=== PATIENT | male | born 1960 | race Caucasian/White ===

== ENCOUNTER 2021-01-23 00:07 | Emergency (ER) | payer MEDICARE | END 2021-01-23 06:15 | disposition home or self-care (01) | LOC: FER 00:07 | DX: S00.93XA Contusion of unspecified part of head, initial encounter (principal); M54.2 Cervicalgia; I48.91 Unspecified atrial fibrillation; E11.9 Type 2 diabetes mellitus without complications; I10 Essential (primary) hypertension; J44.9 Chronic obstructive pulmonary disease, unspecified; F17.200 Nicotine dependence, unspecified, uncomplicated; Y04.2XXA Assault by strike against or bumped into by another person, initial encounter; Y92.009 Unspecified place in unspecified non-institutional (private) residence as the place of occurrence of the external cause | CPT/HCPCS: 70450; 72125 ==

== ENCOUNTER 2021-07-03 08:29 | Emergency (ER) | payer MEDICARE ==
[2021-07-03 09:16] LABS: BASOPHIL 0.9 % (0-2); EOSINOPHIL 3.2 % (0-5); HGB 17.9 g/dl (13.2-18.0); LYMPHOCYTE 26.1 % (15-48); MCH 30.7 pg (25.0-31.0); MCHC 33.1 g/dL (32.0-36.0); MCV 92.5 fL (78.0-100.0); MONOCYTE 10.6 % (0-12); MPV 9.1 fL (6.0-9.5); NEUTROPHIL 58.4 % (41-80); NRBC 0; PLT 282 K/uL (150-400); RBC 5.84 M/uL (4.70-6.00); RDW 13.2 % (11.5-14.0); WBC 6.6 K/uL (4.0-10.5)
[2021-07-03 09:20] LABS: PROTHROMBIN TIME 12.6 SECONDS (11.8-13.4)
[2021-07-03 09:21] LABS: PTT 26.5 SECONDS (24.4-34.7)
[2021-07-03 09:22] LABS: D-DIMER < 0.27 ug/mLFEU (0.00-0.41)
[2021-07-03 09:38] LABS: LACTIC ACID 1.4 mmol/L (0.4-1.9)
[2021-07-03 09:42] LABS: PRO-BNP 26 pg/mL (<125)
[2021-07-03 09:43] LABS: BILIRUBIN - TOTAL 0.5 mg/dL (0.2-1.0); BUN/CREAT RATIO (CALC) 15.8 RATIO; CREATININE 1.01 mg/dL (0.67-1.17); GLOBULIN (CALCULATION) 4.7 g/dL; POTASSIUM 4.3 mmol/L (3.5-5.1); TOTAL PROTEIN 8.7 g/dL (6.4-8.2)
[2021-07-03 09:58] LABS: CORONAVIRUS 2019 SARS-COV-2 NEGATIVE (NEGATIVE); INFLUENZA A NAA NEGATIVE (NEGATIVE)
[2021-07-03] MEDS ORDERED: SYMBICORT 80-10.2 GM INH (10:29)
[2021-07-03] MEDS ORDERED: SPIRIVA RESPIMAT4 GM INH (10:29)
[2021-07-03] MEDS ORDERED: VENTOLIN HFA IN18 GM INH (10:29)
== END 2021-07-03 10:58 | disposition home or self-care (01) ==
LOC: FER 08:29
PROVIDERS: Emergency Medicine
DX: J44.9 Chronic obstructive pulmonary disease, unspecified (principal); I10 Essential (primary) hypertension; F17.210 Nicotine dependence, cigarettes, uncomplicated; Z20.822 Contact with and (suspected) exposure to COVID-19
CPT/HCPCS: 36415; 36600; 71045; 80053; 82803; 83605; 83880; 84484; 85025; 85379; 85610; 85730; 87040; 93005; 94640; U0002

== ENCOUNTER 2021-11-20 13:08 | Emergency (ER) | payer MEDICARE ==
[~2021-11-20] VITALS: Ht 182.9 cm; Wt 97.1 kg
[~2021-11-20 13:08] MED LIST: SPIRIVA RESPIMAT4 GM INH; SYMBICORT 80-10.2 GM INH; VENTOLIN HFA IN18 GM INH
[2021-11-20 13:59] LABS: EOSINOPHIL 1.8 % (0-5); HCT 50.1 % (42.0-52.0); HGB 16.3 g/dl (13.2-18.0); LYMPHOCYTE 19.8 % (15-48); MCHC 32.5 g/dL (32.0-36.0); MCV 95.4 fL (78.0-100.0); MONOCYTE 6.2 % (0-12); NEUTROPHIL 70.4 % (41-80); NRBC 0; PLT 302 K/uL (150-400); RBC 5.25 M/uL (4.70-6.00); RDW 12.9 % (11.5-14.0); WBC 7.2 K/uL (4.0-10.5)
[2021-11-20 14:27] LABS: ALBUMIN 4.2 g/dL (3.4-5.0); BILIRUBIN - TOTAL 0.4 mg/dL (0.2-1.0); BUN/CREAT RATIO (CALC) 10.5 RATIO; CREATININE 0.95 mg/dL (0.67-1.17); GLOBULIN (CALCULATION) 4.1 g/dL; TOTAL PROTEIN 8.3 g/dL (6.4-8.2)
[2021-11-20] MEDS ORDERED: PREDNISONE 20MG20 MG PO (15:14)
== END 2021-11-20 15:22 | disposition home or self-care (01) ==
LOC: FER 13:08
PROVIDERS: Physician Assistant
DX: J44.9 Chronic obstructive pulmonary disease, unspecified (principal); F41.9 Anxiety disorder, unspecified; F17.210 Nicotine dependence, cigarettes, uncomplicated
CPT/HCPCS: 36415; 71045; 80053; 83880; 84484; 85025; 93005